=== PATIENT | male | born 1965 | race Caucasian/White ===

== ENCOUNTER → 2018-09-27 | Outpatient (CLI) | payer MEDICAID ==
[~2018-09-27] MED LIST: AMOX-291 PO; BACI28.43 PO; GADOBUTROL 10 MMOL/10 ML PFS ONE; OXYC-302 PO; none per pt
== END | disposition home or self-care (01) ==
LOC: CFH 13:42
PROVIDERS: ATTEND Psychiatry & Neurology Neurology
DX: G95.9 Disease of spinal cord, unspecified (principal); R90.82 White matter disease, unspecified; G35 Multiple sclerosis
CPT/HCPCS: 70553; 72157; A9585

== ENCOUNTER 2019-04-11 16:13 | Emergency (ER) | payer MEDICAID ==
[~2019-04-11] VITALS: Ht 172.7 cm; Wt 100.2 kg
[~2019-04-11 16:13] MED LIST changes: -GADOBUTROL 10 MMOL/10 ML PFS ONE
--- NOTE | 2019-04-11 16:33 | NUR ---
LOW BACK PAIN X 2 DAYS. NOTICED SWELLING AND PAIN IN RIGHT TESTICLE STARTING TODAY. HX OF MS.
[2019-04-11] MEDS ORDERED: ATOR-2 PO (16:43)
[2019-04-11] MEDS ORDERED: TERI14TA PO (16:43)
[2019-04-11] MEDS ORDERED: ASPI-496 PO (16:43)
[2019-04-11] MEDS ORDERED: AMITRIPTYLINE (16:45)
--- NOTE | 2019-04-11 16:45 | NUR ---
ER INTO SEE PT
[2019-04-11] MEDS ORDERED: KETOROLAC 30 MG/1 ML ONE (17:08)
[2019-04-11 17:10] LABS: BASOPHILS # (AUTO) 0.05 x10^3/uL (0-0.1); BASOPHILS % (AUTO) 1 % (0-1); EOSINOPHILS % (AUTO) 3 % (1-7); LYMPHOCYTES # (AUTO) 1.58 x10^3/uL (1-3.4); LYMPHOCYTES % (AUTO) 23 % (22-44); MD NO; MEAN CORPUSCULAR HEMOGLOBIN 30.9 pg (27.5-34.5); MEAN CORPUSCULAR VOLUME 90.7 fL (81-97); MEAN PLATELET VOLUME 8.4 fL (7.4-10.4); MONOCYTES # (AUTO) 0.64 x10^3/uL (0.2-0.8); MONOCYTES % (AUTO) 9 % (2-9); NEUTROPHILS # (AUTO) 4.54 x10^3/uL (1.8-6.8); NEUTROPHILS % (AUTO) 65 % (42-75); PLATELET COUNT 211 x10^3/uL (130-400); RED CELL DISTRIBUTION WIDTH 13.5 % (9.4-14.8)
--- NOTE | 2019-04-11 17:15 | NUR ---
PT MEDICATED FOR PAIN PER EMAR
--- NOTE | 2019-04-11 17:22 | NUR ---
PT REPORTS HE IS UNABLE OT URINATE AT THIS TIME.
[2019-04-11 17:23] LABS: ALBUMIN 3.6 g/dL (3.4-5.0); ANION GAP 4 mmol/L (5-15); CALCIUM 8.6 mg/dL (8.5-10.1); CHLORIDE 112 mmol/L (98-107); CREATININE 1.15 mg/dL (0.7-1.3)
[2019-04-11] MEDS ORDERED: KETOROLAC 30 MG/1 ML IM ONE (17:30)
[2019-04-11] MEDS ORDERED: KETOROLAC 60 MG/2 ML IM ONE (17:30)
[2019-04-11 19:15] LABS: MICROSCOPIC NOT IND
[2019-04-11 19:17] VITALS: BP 144/98
--- NOTE | 2019-04-11 19:19 | NUR ---
REPORT FROM AHSAN DE LEON. PT RESTING WITH NO NEEDS AT THIS TIME. VSS. CALL LIGHT IN REACH
[2019-04-11 19:32] LABS: CULTURE INDICATED? NO
--- NOTE | 2019-04-11 20:00 | NUR ---
Patient given discharge instructions and they have confirmed that they understand the instructions. Patient ambulatory with steady gait.
== END 2019-04-11 20:03 | disposition home or self-care (01) ==
LOC: ED 19:57
DX: S39.012A Strain of muscle, fascia and tendon of lower back, initial encounter (principal); S33.5XXA Sprain of ligaments of lumbar spine, initial encounter; N43.3 Hydrocele, unspecified; X58.XXXA Exposure to other specified factors, initial encounter; Y93.89 Activity, other specified; Y92.89 Other specified places as the place of occurrence of the external cause; Y99.8 Other external cause status
CPT/HCPCS: 36415; 76870; 80048; 81003; 82040; 85025; 96372; 99284; J1885

== ENCOUNTER 2021-05-03 16:11 | Emergency (ER) | payer SELFPAY ==
[~2021-05-03] VITALS: Ht 172.7 cm; Wt 101.5 kg
[~2021-05-03 16:11] MED LIST changes: +AMITRIPTYLINE; +ASPI-496 PO; +ATOR-2 PO; -OXYC-302 PO; +OXYC1TAB14 PO; +TERI14TA PO
[2021-05-03 16:29] VITALS: BP 150/98
[2021-05-03 17:57] LABS: BASOPHILS % (AUTO) 1 % (0-1); EOSINOPHILS % (AUTO) 1 % (1-7); LYMPHOCYTES % (AUTO) 10 % (22-44); MEAN CORPUSCULAR HEMOGLOBIN 29.6 pg (27.5-34.5); MEAN PLATELET VOLUME 7.4 fL (7.4-10.4); MONOCYTES % (AUTO) 8 % (2-9); NEUTROPHILS % (AUTO) 80 % (42-75); PLATELET COUNT 262 x10^3/uL (130-400); RED BLOOD COUNT 4.89 x10^6/uL (4.38-5.82); RED CELL DISTRIBUTION WIDTH 13.3 % (9.4-14.8)
[2021-05-03 18:08] LABS: ALBUMIN 3.6 g/dL (3.4-5.0); ANION GAP 5 mmol/L (5-15); CALCIUM 8.7 mg/dL (8.5-10.1); CHLORIDE 108 mmol/L (98-107)
--- NOTE | 2021-05-03 20:29 | NUR ---
CALLED IN THE LOBBY 3 TIMES. NO ANSWER
== END 2021-05-03 20:31 | disposition left against medical advice (07) ==
LOC: ED 20:00
DX: R10.9 Unspecified abdominal pain (principal)
CPT/HCPCS: 36415; 74176; 80048; 82040; 85025; 99284

== ENCOUNTER 2021-05-05 09:54 | Emergency (ER) | payer SELFPAY ==
[~2021-05-05] VITALS: Ht 172.7 cm; Wt 100.2 kg
[2021-05-05] MEDS ORDERED: TAMSULOSIN 0.4 MG CAP.ER.24H ONE (10:41)
[2021-05-05] MEDS ORDERED: ONDANSETRON 2MG/ML, 2ML ONE (10:42)
[2021-05-05] MEDS ORDERED: MORPHINE SULFATE 4 MG/ML, 1ML ONE ×2 (10:42→14:26)
[2021-05-05] MEDS ORDERED: KETOROLAC 30 MG/1 ML ONE (10:42)
[2021-05-05] MEDS: MORPHINE SULFATE 4 MG/ML, 1ML IVPush PRN ×2 (10:48→14:29)
[2021-05-05] MEDS ORDERED: TAMSULOSIN 0.4 MG CAP.ER.24H PO ONE (11:00)
[2021-05-05] MEDS ORDERED: SODIUM CHLORIDE FLUSH 10ML SYR IVF ONE (11:00)
[2021-05-05] MEDS ORDERED: KETOROLAC 30 MG/1 ML IVPush ONE (11:00)
[2021-05-05] MEDS ORDERED: ONDANSETRON 2MG/ML, 2ML IVPush ONE (11:00)
--- NOTE | 2021-05-05 11:17 | NUR ---
PT C/O LEFT FLANK PAIN X 5 DAYS, INTERMITTENT, SEVERE TODAY. PT SEEN IN THIS ED 3 DAYS AGO, LEFT AMA D/T PROLONGED WAIT TIME, IMAGING AND LAB WAS OBTAINED AT THAT VISIT. PT IS A&O, RESPS EVEN AND UNLABORED. INITIALLY RESTLESS, DIAPHORETIC AND ANXIOUS WITH 10/10 PAIN, NOW 8/10 PAIN, STATES THIS IS TOLERABLE. US IN PROGRESS AT BEDSIDE.
[2021-05-05 11:22] LABS: BASOPHILS % (AUTO) 1 % (0-1); EOSINOPHILS % (AUTO) 1 % (1-7); LYMPHOCYTES % (AUTO) 10 % (22-44); MEAN CORPUSCULAR HEMOGLOBIN 29.3 pg (27.5-34.5); MEAN CORPUSCULAR HGB CONC 33.4 g/dL (33.2-36.2); MEAN PLATELET VOLUME 7.6 fL (7.4-10.4); MONOCYTES % (AUTO) 10 % (2-9); NEUTROPHILS % (AUTO) 78 % (42-75); PLATELET COUNT 294 x10^3/uL (130-400); RED BLOOD COUNT 5.55 x10^6/uL (4.38-5.82); RED CELL DISTRIBUTION WIDTH 13.1 % (9.4-14.8)
--- NOTE | 2021-05-05 11:24 | NUR ---
PT INSTRUCTED TO PROVIDE CLEAN CATCH UA, STATES UNABLE AT THIS TIME.
[2021-05-05 11:34] LABS: ALBUMIN 3.7 g/dL (3.4-5.0); ANION GAP 10 mmol/L (5-15); CALCIUM 8.8 mg/dL (8.5-10.1); CHLORIDE 107 mmol/L (98-107); CREATININE 1.42 mg/dL (0.7-1.3)
[2021-05-05] MEDS ORDERED: ASPI-963 PO (11:35)
[2021-05-05] MEDS ORDERED: TERI14TA PO (11:35)
[2021-05-05] MEDS ORDERED: fish oil PO (11:35)
[2021-05-05] MEDS ORDERED: AMIT10TA PO (11:35)
[2021-05-05] MEDS ORDERED: IBUP-1902 PO (11:35)
[2021-05-05] MEDS ORDERED: vitamin c PO (11:35)
--- NOTE | 2021-05-05 12:26 | NUR ---
PT UNABLE TO VOID INITIALLY, AFTER PROMPTED 3RD TIME, PT ABLE TO VOID WITH CLEAN CATCH. REFUSES STRAIGHT CATH. LAW INFORMED. CLEAN CATCH URINE PROVIDED AND SENT TO LAB.
[2021-05-05 12:37] LABS: MICROSCOPIC AUTO
[2021-05-05] MEDS ORDERED: SODIUM CHLORIDE 0.9% 1,000ML IVBOLUS ONE ×2 (14:00→14:30)
--- NOTE | 2021-05-05 14:07 | NUR ---
PT STRAIGHT CATH'D, NO URINE RESIDUAL IN BLADDER. STRAIGHT CATH PERFORMED WITH NO RESISSTANCE OR PAIN REPORTED BY PT. EDWI LAW NOTIFIED. ORDERED 1 LITER NS BOLUS TO HYDRATE PT FOR REPEAT STRAIGHT CATH.
--- NOTE | 2021-05-05 14:33 | NUR ---
PT MEDICATED FOR RETURNED LEFT FLANK PAIN, LEVEL 7/10. PT A&O, RESPS EVEN AND UNLABORED, NADN. AWAITING REPEAT UA AND DISPO.
--- NOTE | 2021-05-05 14:45 | NUR ---
report to shakira alonzo
--- NOTE | 2021-05-05 14:54 | NUR ---
1L NS COMPLETE. STRAIGHT CATHERIZED FOR 150ML, SAMPLE SENT POC CLARIFIED WITH PROVIDER-NPO UNTIL UA RESULTS (MIGHT HAVE TO GO TO SURGERY WITH UROLOGY PAIN IMPROVED TO 3/10, NO NAUSEA AT THIS TIME
[2021-05-05 15:07] LABS: MICROSCOPIC AUTO
[2021-05-05] MEDS ORDERED: HYDROmorphone 2 MG/ML, 1ML IVPush PRN (16:00)
[2021-05-05] MEDS ORDERED: HYDROmorphone 1 MG/ML, 1ML INJ ONE (16:19)
[2021-05-05 16:26] VITALS: BP 145/93
== END 2021-05-05 17:30 | disposition home or self-care (01) ==
LOC: ED 10:58
DX: N13.2 Hydronephrosis with renal and ureteral calculous obstruction (principal); F17.200 Nicotine dependence, unspecified, uncomplicated
CPT/HCPCS: 36415; 76770; 80048; 81001; 82040; 85025; 87086; 96374; 96375; 96376; 99285; J1170; J1885; J2270; J2405; J7030